=== PATIENT | male | born 1985 | race Caucasian/White ===

== ENCOUNTER 2017-08-21 10:14 | Emergency (ER) | payer BC ==
[~2017-08-21] VITALS: Ht 172.1 cm; Wt 82.4 kg
[~2017-08-21 10:14] MED LIST: NORC7.5T PO
[2017-08-21 10:28] VITALS: BP 160/75; PULSE 84; RESP 16; TEMP 98.5; O2SAT 98
--- NOTE | 2017-08-21 11:06 | PD ---
HPI Chief Complaint: Injury Time Seen by Provider: 11:00 Travel History International Travel<30 days: No Contact w/Intl Traveler<30days: No Traveled to known affect area: No History of Present Illness HPI Patient comes to the emergency department complaining of left hand pain began yesterday [place]. Patient reports not too much pain yesterday but today having a throbbing sensation over the volar aspect of his left index finger is worse with certain movements and palpation. Not touching it improves the pain. Patient describes pain as a throbbing-like sensation without radiation. Patient reports some bumps that appeared after the injury as well. Patient is concerned states he has had surgery on that hand previously 4 years ago but is uncertain what was repaired. PFSH Past Medical History Asthma: No Cardiovascular Problems: No Diminished Hearing: No Genitourinary: No Musculoskeletal: No Neurologic: No Reproductive: No Respiratory: No Influenza Vaccination: No ?: Not Social History Alcohol Use: Yes (occ) Tobacco Use: Yes (FEW CIGS A WEEK) Substance Use: Yes (MARIJUANA ON OCCASION) Allergies-Medications (Allergen,Severity, Reaction): Coded Allergies: No Known Allergies (Verified Adverse Reaction, Unknown, 08/21/17) Reported Meds & Prescriptions Reported Meds & Active Scripts Active Reported [place] 7.5-325 mg (Hydrocodone-Acetaminophen 7.5-325 mg) 1 Tab 1 Tab PO Q4H PRN Review of Systems Except as stated in HPI: all other systems reviewed are Neg Physical Exam Narrative GENERAL: Well-developed, overly nourished, in no acute distress, and non-ill appearing. SKIN: Focused skin assessment warm and dry. HEAD: Atraumatic. Normocephalic. EYES: Pupils equal and round. EOMI. No scleral icterus. No injection or drainage. ENT: No nasal bleeding or discharge. Mucous membranes pink and moist. NECK: Trachea midline. Supple. No nuclear rigidity. CARDIOVASCULAR: Radial pulses 2+, intact, equal bilaterally. Capillary refill less than 2 seconds. RESPIRATORY: No accessory muscle use. No respiratory distress. MUSCULOSKELETAL: No obvious deformities. No clubbing. No cyanosis. No edema. Full range of motion. Wrist: FROM and equal BL with passive flexion, extension , and pronation/supination. Capillary refill less than 2 seconds distal to injury and equal BL. FROM distal to injury and equal BL. Strength distal to injury equal BL. NV intact distal to injury. Flexion and extension of thumb equal BL. Equal strength and movement with flexion, extension, opposition, and abduction/adductions of BL fingers with the exception of being unable to completely flex at the PIP joint of the second digit left hand secondary to swelling. Clinical Nursing Coordinator strength equal BL. No tenderness to the anatomical snuffbox. Patient reports point tenderness over 3 small bumps noted on part of his left hand over the proximal phalanx of the second digit, over the web spacing between the first and second digit additional 2. No crepitus, no fluctuation, and no induration. Pulse ox 99% on room air over left index finger. NEUROLOGICAL: Awake and alert. No obvious cranial nerve deficits. Motor grossly within normal limits. Normal speech. PSYCHIATRIC: Appropriate mood and affect; insight and judgment normal. Data Data Last Documented VS Vital Signs Date Time Temp Pulse Resp B/P (MAP) Pulse Ox O2 Delivery O2 Flow Rate FiO2 08/21/17 10:28 98.5 84 16 160/75 (103) 98 Orders Orders Hand, Complete ([id number]) (08/21/17 ) Ed Discharge Order (08/21/17 12:24) MDM Medical Decision Making Medical Screen Exam Complete: Yes Emergency Medical Condition: Yes Interpretation(s) Last Impressions Hand X-Ray 08/21/17 0000 Signed Impressions: Service Date/Time: Monday, August 21, 2017 11:22 - CONCLUSION: 1. The osseous structures of the hand are intact. 2. Numerous calcific or ossific opacities at the base of the 2nd digit and in the soft tissues between the 1st and 2nd digit. Milan Morales MD Differential Diagnosis Fracture, strain, contusion, tendon injury, foreign body, ganglion cyst Narrative Course There is no clinical evidence for fracture. There is no clinical evidence to suspect bony injury by exam. Radiographic examination revealed no fracture seen at this time. No obvious ligamental injury or internal derangement is noted at this time. The distal extremity appears neurovascularly intact, without evidence of neurovascular injury nor compartment syndrome. Tendon exam also was intact. The patient was discharged and given warnings for vascular compromise. The patient is to follow up with hand surgeon. The patient agrees with plan. Patient in no obvious distress upon re-evaluation. All pertinent Radiology result(s) discussed with patient. Discussed patient with Dr. Muhammad prior to discharge, reviewed patient's x-rays and is in agreement with plan of care and disposition. Any questions/concerns in reference to patient diagnosis/ condition discussed and clarified prior to patient's discharge. Reinforced sheer importance of close follow up with patient's primary physician or primary care clinic and hand surgeon. Instructed patient to return to ED immediately, if symptoms return/worsen. Patient showed understanding of above instructions. Further instructions and recommendations were detailed in discharge paperwork. Patient ambulated without difficulty out of ED at discharge. Diagnosis Primary Impression: Injury of left hand Qualified Codes: S69.92XA - Unspecified injury of left wrist, hand and finger( s), initial encounter Referrals: Azael Estrada MD Patient Instructions: General Instructions Additional Instructions: Follow-up with hand surgeon this week for reevaluation. Use [id number] Tylenol as needed for pain. Follow instructions on the packaging. Apply ice to affected area times per hour as needed for pain. Return to the emergency department if symptoms get worse. Jose Pagan Aug 21, 2017 11:06
--- NOTE | 2017-08-21 11:46 | RADRPT ---
EXAM DATE/TIME: 08/21/2017 11:22 [facility] COMPARISON: WRIST RIGHT LIMITED(AP & LAT), January 09, 2016, 4:22. INDICATIONS : Left hand pain and swelling second digit MEDICAL HISTORY : None. SURGICAL HISTORY : Prior surgery to left hand ENCOUNTER: Initial ACUITY: 1 day PAIN SCORE: 9/10 LOCATION: Left hand FINDINGS: Three-view examination of the hand demonstrates the osseous structures to be grossly intact without e vidence of fracture, periosteal reaction, or dislocation. In the soft tissues of the proximal 2nd di git extending into the ulnar web space between the 1st and 2nd digit, there are numerous calcific den sities which measure up to 4 mm in size. There is also some contour protuberance of the soft tissues . CONCLUSION: 1. The osseous structures of the hand are intact. 2. Numerous calcific or ossific opacities at the base of the 2nd digit and in the soft tissues betwee n the 1st and 2nd digit. Milan Morales MD on August 21, 2017 at 11:43 Board Certified Radiologist. This report was verified electronically.
== END 2017-08-21 12:36 | disposition home or self-care (01) ==
LOC: PHED 10:14 → PHEFT 12:36
DX: S69.92XA Unspecified injury of left wrist, hand and finger(s), initial encounter (principal); W21.01XA Struck by football, initial encounter; Y93.61 Activity, american tackle football; Y92.832 Beach as the place of occurrence of the external cause; F17.210 Nicotine dependence, cigarettes, uncomplicated; F12.90 Cannabis use, unspecified, uncomplicated
CPT/HCPCS: 73130; 99283

== ENCOUNTER 2017-08-30 21:29 | Emergency (ER) | payer BC ==
[~2017-08-30] VITALS: Ht 170.2 cm; Wt 81.6 kg
[2017-08-30 21:35] VITALS: BP 151/93; PULSE 105; RESP 20; TEMP 98.2; O2SAT 97
--- NOTE | 2017-08-30 23:08 | PD ---
HPI Chief Complaint: Pain: Acute or Chronic Time Seen by Provider: 22:52 Travel History International Travel<30 days: No Contact w/Intl Traveler<30days: No Traveled to known affect area: No History of Present Illness HPI 32yo M with no significant PMH presents the ED with c/o left hand pain. Pt was seen on 08/21/17 for the same pain after catching a football. Xray left hand showed numerous calcific and ossific opacities at base of 2nd digit and soft tissue between 1st and 2nd digit. Pt said he was not discharge with any pain medication and is here for pain medication. Pt denies any new trauma, fever, chest pain, sob, n/v, abdominal pain, focal weakness or numbness. Pt had hand surgery in left hand 4 years ago. Pt followed up with Dr. Estrada and has an MRI hand scheduled. PFSH Past Medical History Medical History: Denies Significant Hx Asthma: No Cardiovascular Problems: No Diminished Hearing: No Genitourinary: No Musculoskeletal: No Neurologic: No Reproductive: No Respiratory: No Influenza Vaccination: No ?: Not Past Surgical History Other Surgery: No Social History Alcohol Use: Yes (occ) Tobacco Use: Yes (FEW CIGS A WEEK) Substance Use: Yes (MARIJUANA ON OCCASION) Allergies-Medications (Allergen,Severity, Reaction): Coded Allergies: No Known Allergies (Verified Adverse Reaction, Unknown, 08/30/17) Reported Meds & Prescriptions Reported Meds & Active Scripts Active Ibuprofen 600 Mg Tab 600 Mg PO Q8HR PRN 5 Days Review of Systems Except as stated in HPI: all other systems reviewed are Neg Physical Exam Narrative GENERAL: 32yo M in mild distress. SKIN: Focused skin assessment warm/dry. HEAD: Atraumatic. Normocephalic. CARDIOVASCULAR: Regular rate and rhythm. No murmur appreciated. RESPIRATORY: No accessory muscle use. Clear to auscultation. Breath sounds equal bilaterally. GASTROINTESTINAL: Abdomen soft, non-tender, nondistended. MUSCULOSKELETAL: Right hand: +TTP thenar eminence. +Round skin color soft tissue between the first and second degree. FROM in all digits. +TTP volar aspect of 2nd MCP. Sensation intact. Distal pulses intact. NEUROLOGICAL: Awake and alert. No obvious cranial nerve deficits. Motor grossly within normal limits. Normal speech. PSYCHIATRIC: Appropriate mood and affect; insight and judgment normal. Data Data Last Documented VS Vital Signs Date Time Temp Pulse Resp B/P (MAP) Pulse Ox O2 Delivery O2 Flow Rate FiO2 08/31/17 00:55 88 18 146/74 (98) 99 08/30/17 21:35 98.2 Orders Orders Ketorolac Inj (Toradol Inj) (08/30/17 23:15) Oxycodone-Acetamin 5-325 Mg (Percocet (08/31/17 00:00) Ed Discharge Order (08/31/17 00:20) MDM Medical Decision Making Medical Screen Exam Complete: Yes Emergency Medical Condition: Yes Differential Diagnosis Neuropathy vs. musculoskeletal pain vs. malingering Narrative Course 32yo M with persistent left hand pain. No signs of infection. No new trauma. Pt has MRI scheduled and is here for pain control. Initially given toradol but did not resolve pain. Pt then given 1 percocet and pain improved. Return precautions given. Diagnosis Primary Impression: Left hand pain Patient Instructions: General Instructions Departure Forms: Tests/Procedures Additional Instructions: Please follow up with your hand surgeon if pain persists. Return to the ED if symptoms worsen. Med/Other Pt SpecificInfo: Prescription(s) given Scripts Ibuprofen (Ibuprofen) 600 Mg Tab 600 MG PO Q8HR Y for PAIN for 5 Days, TAB 0 Refills Prov: OrozcoNyasia DO 08/31/17 Disposition: 01 DISCHARGE HOME Condition: Stable Nyasia Orozco DO Aug 30, 2017 23:08
[2017-08-30] MEDS ORDERED: KETOROLAC TROMETHAMINE 60 MG/2 ML (IM) VIAL IM ONE (23:15)
[2017-08-31] MEDS ORDERED: oxyCODONE/ACETAMINOPHEN 5 MG/325 MG TAB PO ONE
[2017-08-31] MEDS ORDERED: IBUP-232 PO (00:22)
[2017-08-31 00:41] VITALS: RESP 18
[2017-08-31 00:55] VITALS: BP 146/74
== END 2017-08-31 00:56 | disposition home or self-care (01) ==
LOC: PHED 21:29 → PHEFT 08-31 00:56
DX: M79.642 Pain in left hand (principal); F17.210 Nicotine dependence, cigarettes, uncomplicated
CPT/HCPCS: 96372; 99283; J1885

== ENCOUNTER → 2017-09-18 | Day surgery (SDC) | payer BC ==
[~2017-09-18] VITALS: Ht 170.2 cm; Wt 80.0 kg
[~2017-09-18] MED LIST changes: +ACETAMINOPHEN 1000 MG/100 ML 100 ML IV ONE; +BACITRACIN TOP OINT 15 GM TUBE ONE; +BUPIVACAINE/EPINEPHRINE 0.25% 50 ML VIAL ONE; +CHLORHEXIDINE GLUCONATE 2 % 1 PACK (2 CLOTHS) TOPICAL PRN; +IBUP-232 PO; +LACTATED RINGER'S 1000 ML IV PRN; +METOPROLOL TARTRATE 25 MG TAB PO PRN; +MIDAZOLAM HCL 2 MG/2 ML VIAL ONE; -NORC7.5T PO; +POVIDONE IODINE 5% (ANTISEPSIS KIT) 4 APPLICATIONS EACH NARE PRN; +SODIUM CHLORID 0.9% 500 ML IV PRN; +ceFAZolin 1,000 MG/NS 100 ML IV SCH; +fentaNYL CITRATE 250 MCG/5 ML AMP ONE
[2017-09-18 07:22] LABS: HEMATOCRIT 43.9 % (39.0-51.0); HEMOGLOBIN 15.3 GM/DL (13.0-17.0); MEAN CELL VOLUME 91.8 FL (80.0-100.0); MEAN CORPUSCULAR HEMOGLOBIN 31.9 PG (27.0-34.0); MEAN CORPUSCULAR HGB CONC 34.8 % (32.0-36.0); MEAN PLATELET VOLUME 8.4 FL (7.0-11.0); PLATELET COUNT 275 TH/MM3 (150-450); RED BLOOD COUNT 4.78 MIL/MM3 (4.50-5.90); RED CELL DISTRIBUTION WIDTH 12.7 % (11.6-17.2); WHITE BLOOD COUNT 8.9 TH/MM3 (4.0-11.0)
[2017-09-18 10:15] VITALS: PULSE 80
[2017-09-18 11:35] VITALS: BP 113/76; PULSE 72; RESP 16; TEMP 98; O2SAT 99
--- NOTE | 2017-09-18 15:26 | PD.OP ---
Operative Report Date of Surgery: Sep 18, 2017 Preoperative Diagnosis: (1) Mass of left hand (2) Finger mass, left Postoperative Diagnosis: (1) Finger mass, left (2) Mass of left hand Procedure: Excision of 2 left first webspace subcutaneous masses and excision of 1 left index finger subcutaneous mass (37876 x 3) Anesthesia: General Surgeon: Azael Van Unit Assembler(s): . Operation and Findings: This is a 32-year-old male who presented to clinic with 2 masses in his left first webspace as well as a mass over his ulnar volar index finger proximal phalanx. Risks benefits and alternative treatments were discussed with the patient at length. All questions were answered. The patient expressed understanding. The patient elected to assume the risks of excision of these 3 masses. Informed consent was obtained. The surgical site was marked in the preoperative holding bay. The patient was given antibiotics on-call to the operating room. The patient was taken to the operating room. All pressure points were padded. A surgical timeout was performed. After the smooth induction of general anesthesia, the surgical site was instilled with quarter percent Marcaine with epinephrine and an appropriately padded upper extremity tourniquet was placed. The surgical site was prepped and draped in the usual sterile fashion. The upper extremity was exsanguinated using an Esmarch and the tourniquet inflated to 200 mmHg. Emilie incisions were marked over the index finger proximal phalanx volarly as well as over the two first webspace masses. Attention was first turned to the volar index finger mass. The skin was incised and blunt dissection with the tenotomies was used to visualize the mass. The neurovascular bundle appeared tented above the mass. As such the Lenora incisions were carried more proximally to better appreciate their origin. After dissecting the neurovascular bundles proximally, they were followed out distally. Using meticulous dissection, the mass was freed from the adjacent ulnar digital nerve and artery without injuring them. This was sent for permanent pathology. Attention was then turned to the first webspace masses. The skin was similarly incised, and tenotomy scissors were used to dissect down to the masses. Again the masses were intimately associated with the neurovascular bundle, particularly the artery. The smaller of the 2 masses was able to be excised without difficulty, though the larger of the masses was bilobed with what was believed to be the radial neurovascular bundle to the index finger running between the lobes. The incision was extended such that the first webspace and index finger Lenora incisions were connected. Following this better exposure, it was confirmed that this was the radial neurovascular bundle to the index finger which was running between the tumor lobes. Meticulous dissection was used to free the mass from the adjacent digital artery and nerve without injuring them. Both first webspace masses were also sent for permanent pathology. It was at this time that the tourniquet was let down totaling 66 minutes. All digits pinked up nicely. The surgical site was irrigated. Hemostasis was ensured. The skin was closed with interrupted and running 4-0 nylon in a horizontal mattress fashion. The surgical site was cleaned. The incision was dressed with bacitracin ointment Xeroform gauze dry gauze fluffs soft roll and an appropriately padded volar splint. The patient was awoken smoothly from anesthesia and arrived stable and doing well to the PACU. All needle sponge and instrument counts were correct 2. Azael Van MD Sep 18, 2017 15:26
== END | disposition home or self-care (01) ==
LOC: PHSDC 06:26
PROVIDERS: ATTEND Student in an Organized Health Care Education/Training Program
DX: D18.01 Hemangioma of skin and subcutaneous tissue (principal)
CPT/HCPCS: 00400; 11402; 11423; 36415; 85027; 88305; J0131; J0690; J2250; J3010; J7120